=== PATIENT | male | born 1950 | race Caucasian/White ===

== ENCOUNTER → 2018-03-12 | Outpatient (CLI) | payer OTHER ==
[~2018-03-12] VITALS: Ht 177.8 cm; Wt 93.0 kg
[2018-03-12] VITALS (10 sets, daily range): BP systolic 103–129; BP diastolic 52–77
[~2018-03-12] MED LIST: ADVIL200 M3 PO; ASPIRIN325 PO; ATORVASTATIN CA40 MG PO; CARTIA XT300 M1 PO; FLEXERIL PO; IMDUR 30 MG TAB30 M1 PO; INVOKANA100 MG PO; LIORESAL 10 MG10 MG PO; LISINOPRIL10 MG PO; LORATIDINE 10 M10 M1 PO; METFORMIN HCL500 MG PO; MUPIROCIN22 GM; OXYBUTYNIN 5 MG5 M2 PO; PRILOSEC 20 MG20 MG PO; VITAMIN B12-FO1 EAC1 PO; [UNRECOGNIZED DRUG - OTHER] PO; [UNRECOGNIZED DRUG - OTHER] PO
== END ==
LOC: M.CT 08:55 → M.LAB 09:00 → M.CT 10:00
DX: I20.9 Angina pectoris, unspecified (principal); I10 Essential (primary) hypertension; E11.9 Type 2 diabetes mellitus without complications; E78.2 Mixed hyperlipidemia

== ENCOUNTER → 2018-03-22 | Outpatient (CLI) | payer OTHER ==
[2018-03-22] VITALS (11 sets, daily range): BP systolic 116–141; BP diastolic 66–80
[~2018-03-22] VITALS: Ht 177.8 cm; Wt 93.4 kg
[2018-03-22 13:28] LABS: HEMATOCRIT 50.8 % (42.0-52.0); HEMOGLOBIN 17.3 gm/dL (14.0-18.0); MCH 32.3 pg (26.0-34.0); MCV 95.1 fL (80.0-100.0); RBC 5.35 mil/uL (4.50-6.00); RDW-CV 13.2 % (10.5-14.5); WBC 12.1 thou/uL (4.0-11.0)
[2018-03-22 13:36] LABS: ANION GAP 12 mmol/L (7-16); BUN 27 mg/dL (7-18); CALCIUM 9.6 mg/dL (8.5-10.1); CHLORIDE 105 mmol/L (98-107); CO2 23 mmol/L (21-32); CREATININE 1.1 mg/dL (0.6-1.3); GLUCOSE 103 mg/dL (70-99); SODIUM 140 mmol/L (136-145)
[2018-03-22 13:38] LABS: APTT 27.9 Seconds (25.0-31.3); INR 1.1; PROTIME 10.3 Seconds (9.20-11.50)
[2018-03-22 13:41] LABS: CHOLESTEROL 153 mg/dL (<200); HDL CHOLESTEROL 34 mg/dL (>40); LDL CHOLESTEROL 82 mg/dL (<100); TC:HDL 4.5 Ratio (Not establshd); TRIGLYCERIDE 189 mg/dL (<150); VLDL 38 mg/dL (<40)
[2018-03-22 13:48] LABS: SERUM ASSESSMENT Clear
[2018-03-22 13:52] LABS: POTASSIUM 4.6 mmol/L (3.5-5.1)
--- NOTE | 2018-03-22 13:52 | EKG ---
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: [facility] : 1950 Requested By: Theo Gongora Order Number: [id number] Reading MD: Theo Gongora Measurements Intervals [place] Rate: 72 P: 37 MN: 154 QRS: -46 QRSD: 95 T: 29 QT: 351 QTc: 385 Interpretive Statements Sinus rhythm Left anterior fascicular block Abnormal R-wave progression, late transition Left ventricular hypertrophy No previous ECG available for comparison Electronically Signed On 03-22-2018 13:52:17 CDT by Theo Gongora [email or web address] <ELECTRONICALLY SIGNED> By: Theo Gongora MD, FAC 03/22/18 1352 1314 1314 Theo Gongora MD, [facility] /EPI
--- NOTE | 2018-03-23 13:00 | CARD ---
[address] [address] CARDIAC CATH REPORT Name: JOHN RESTREPO Swathi [id number] Admission: 03/22/18 Attend Phys: Theo Gonogra MD Discharge: Date of : 48 Report #: [id number] THIS REPORT FOR: //name// APPROVED REPORT Study performed: 03/22/2018 14:13:20 Patient Details Patient Status: Out-Patient Room #: The patient is a 67 year-old male Event Personnel Theo Gongora Electric Tool Repairer, Tita Acuna RTR Scrub, Ainsley Martell RTR Monitor, Leeann Thomas Monitor, Wanda Oliveros RN RN, Wilder Morales Electric Tool Repairer Procedures Performed cath and FFR of LADArt Access - R radial artery Indication Unstable angina , Chest pain Risk Factors Arterial Hypertension Admission/Lab Medications/Medications given during procedure Heparin Unfract. Procedure Narrative The patient was brought electively to the Cardiac Catheterization Laboratory and was prepped and draped in a sterile manner. The right wrist was infiltrated with 1% Lidocaine subcutaneous anesthesia. A 6 fr sheath was inserted into the right radial artery. Coronary angiography was performed using coronary diagnostic catheters. The right coronary system was accessed and visualized with a Diagnostic catheter. The left coronary system was accessed and visualized with a Diagnostic catheter. The left ventricle was accessed and visualized with a Diagnostic catheter. Left ventricular/Aortic Valve gradient assessed via catheter pullback. Left ventriculogram was performed in MOSS projection. Closure device was deployed with a 6 Fr vascband. The patient tolerated the procedure well and there were no complications associated with the procedure. There was no hematoma. Intraoperative Conscious Sedation Sedation start time: 2:55 Case end Time: [place] [address] CARDIAC CATH REPORT Name: JOHN RESTREPO Room: [facility]#: [id number] Admission: 03/22/18 Attend Phys: Theo Gongora MD Discharge: Date of : 48 Report #: [id number] 3:50 Fentanyl 25 mcg Versed 2 mg Fluoro Time: 11.9 minutes Dose: DAP 44270 cGycm2 1553 mGy Contrast Type and Amount: Omnipaque 170 ml Coronary Angiography The patient's coronary anatomy is right dominant. Diagnostic Cath Left Main normal LAD proximal to mid 50-60%, FFR to be done later was normal apical 40% Diagonal 1 large normal Circumflex proximal 30% OM1 large and normal OM2 large and normal OM3 small normal Right Coronary mid body 30-40% R PDA distal moderate 50%,small vessel RPLV normal Left Ventriculography The left ventricle is normal in size with normal contractility. The left ventricular ejection fraction is estimated to be >55%. There is no mitral insufficiency. no gradient on pullback, normal edp <12 IVUS Anticoagulation was achieved with Heparin. Fractional Flow [place] was performed on the mid left anterior descending artery segment vessel. A xb 3.5 Guide Catheter was used to engage the lm ostium. A radi Interventional Guidewire was used. A FFR wire was used. IVUS Findings Baseline FFR was 0.94. After 2 minutes of IV Adenosine infusion, the FFR was 0.98. Hemodynamics The aortic pressure is 97/57 mmHg with a mean of 74 mmHg. The left ventricular pressure is 98/-4 mmHg with a mean of mmHg. The left ventricular end diastolic pressure is 3 mmHg. There was no gradient across the aortic valve upon pullback. Pullback from the left ventricle to the aorta revealed no gradient across [place] [address] CARDIAC CATH REPORT Name: LAUROJOHN Giordano Swathi Room: [facility]#: [id number] Admission: 03/22/18 Attend Phys: Theo Gongora MD Discharge: Date of : 48 Report #: [id number] PCI Technique Lesion The lesion stenosis prior to intervention was mid left anterior descending artery segment% with DOLLY xb 3.5 flow. A lm Guide Catheter was used to engage the radi ostium. A FFR wire Interventional Guidewire was used to cross the lesion. BALLOON DILATION A Balloon catheter Baseline FFR was 0.94. After 2 minutes of IV Adenosine infusion, the FFR was 0.98. was inserted and inflated up to jazmín for seconds. Conclusion 1. moderate cad 2. Negative FFR of the mid lad Recommendations Aggressive Medical Therapy <ELECTRONICALLY SIGNED> By: Theo Gongora MD, FACC 03/23/18 1259 1259 [id number] Gongora MD, FAC /INF
== END | disposition home or self-care (01) ==
LOC: M.CL 11:56
PROVIDERS: Internal Medicine Cardiovascular Disease
DX: I25.10 Atherosclerotic heart disease of native coronary artery without angina pectoris (principal); I10 Essential (primary) hypertension; E78.5 Hyperlipidemia, unspecified; N40.0 Benign prostatic hyperplasia without lower urinary tract symptoms; F32.9 Major depressive disorder, single episode, unspecified; E11.9 Type 2 diabetes mellitus without complications; Z90.81 Acquired absence of spleen; Z98.890 Other specified postprocedural states; Z79.82 Long term (current) use of aspirin; Z79.899 Other long term (current) drug therapy

== ENCOUNTER → 2018-06-27 | Outpatient (CLI) | payer OTHER | LOC: M.RAD 12:35 | DX: J98.11 Atelectasis (principal); J98.4 Other disorders of lung ==

== ENCOUNTER → 2018-07-17 | Outpatient (CLI) | payer OTHER ==
--- NOTE | 2018-07-18 07:45 | PF ---
[address] [address] PULMONARY FUNCTION REPORT Name: SILVESTRE RESTREPO Swathi Room: [facility]#: [id number] Admission: 07/17/18 Attend Phys: Thoe Gongora MD Discharge: Date of : 48 Report #: [id number] THIS REPORT FOR: //name// CC: Theo Rolon REFERRING PHYSICIAN: Dr. Theo Gongora. TYPE OF STUDY: Pulmonary function test. SPIROMETRY: The FEV1/FVC ratio was 74%. The FEV1 was 3.26 liters at 99% of predicted. The forced vital capacity was 4.41 liters at 98% of predicted. The FEF 25-75 was 95% predicted. No significant post-bronchodilator response. LUNG VOLUMES AND DLCO: The total lung capacity was 6.58 liters at 92% predicted. The DLCO was 107% predicted. IMPRESSION: This pulmonary function test does not demonstrate evidence of obstructive or restrictive defect. It was within normal limits. <ELECTRONICALLY SIGNED> By: Natalie Belcher MD 07/18/18 0745 1318 [id number] Mane MD /nt
== END ==
LOC: M.PUL 09:04
DX: R06.09 Other forms of dyspnea (principal)